=== PATIENT | female | born 1950 | race Caucasian/White ===

== ENCOUNTER → 2017-08-13 | Outpatient (CLI) | payer MEDICARE ==
[~2017-08-13] MED LIST: BACTRIM DS 8001 TAB PO; COUMADIN 5MG TAB5 MG PO; ENDOMETRIN100 MG PO; KEFLEX 500MG.500 MG PO; LEVOTHYROXINE0.1 MG PO; LOVENOX 12120 MG/0.8 SC; METOPROLOL SUCC50 M1 PO; ZETIA10 MG PO; ZOCOR40 MG PO
[2017-08-13 13:53] LABS: HEMOGLOBIN 14.2 g/dL (12.2-16.2); LYMPH # 2.2 K/mm3 (0.7-4.5); LYMPH % 42.2 % (10-50.0)
[2017-08-13 15:42] LABS: BUN 13 mg/dL (7-18); GFR (ESTIMATED) 55 ML/MIN (59-)
== END ==
LOC: CARL-LAB 10:38
PROVIDERS: Internal Medicine Adolescent Medicine
DX: E03.9 Hypothyroidism, unspecified (principal); E78.2 Mixed hyperlipidemia; M81.0 Age-related osteoporosis without current pathological fracture

== ENCOUNTER → 2017-08-23 | Outpatient (CLI) | payer MEDICARE ==
--- NOTE | 2017-08-29 22:16 | RADIOLOGY REPORT PS360 ---
DIG MAMM-SCREEN [facility] W/CAD CAD Screening ORDERING PHYSICIAN : Brnanon Madden MD PATIENT AGE: 66 years GENDER: Female COMPARISON: Previous mammograms: June 2015, July 2016, December 2013, December 2012 INDICATION: Routine screening no hormones no evidence of lungs listed Family history: sibling sister with breast cancer age 38. Also Paternal aunts TECHNIQUE: Standard CC and MLO images were obtained. R2 CAD reviewed. FINDINGS minimal fibroglandular elements with relatively fatty breast: Fairly low-density breast with no significant new areas of concern. . RIGHT BREAST: No significant new findings LEFT BREAST:. 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 Scattered small areas of nodularity is similar to previous studies can be followed. IMPRESSION: Stable bilateral mammogram No significant new areas of concern. Bilateral follow-up in one year recommended BI-RADS CATEGORY: 2_Benign RECOMMENDED FOLLOWUP: 12M 12 MONTH FOLLOW-UP (A letter has been sent to the patient regarding results of the study.)
== END ==
LOC: RAD 10:31
DX: Z12.31 Encounter for screening mammogram for malignant neoplasm of breast (principal)
CPT/HCPCS: G0202